=== PATIENT | male | born 1980 ===

== ENCOUNTER 2017-08-25 20:13 | Emergency (ER) | payer SELFPAY ==
[2017-08-25 20:16] VITALS: TEMP 97.8
--- NOTE | 2017-08-25 21:07 | C.PDOC ---
History Of Present Illness 37 year old male presents to the ER via EMS from home where he was intoxicated with his family. Patient reports he drank 12 beers and snorted a bag of cocaine. Patient walked in to the ER with EMS, complaint, mildly argumentative. Denies physical complaints. Time Seen by Provider: 08/25/17 21:06 Chief Complaint (Nursing): Substance Abuse History Per: Patient History/Exam Limitations: no limitations Onset/Duration Of Symptoms: Hrs Current Symptoms Are (Timing): Still Present Suicide/Self Injury Attempted (Context): None Modifying Factor(s): Alcohol Associated Symptoms: denies: Depression, Suicidal Thoughts, Suicidal Plan Involuntary Hold By: None Recent travel outside of the [place]: No Past Medical History Reviewed: Historical Data, Nursing Documentation, Vital Signs Vital Signs: Last Vital Signs Temp 97.8 F 08/25/17 20:15 Pulse 96 H 08/25/17 20:15 Resp 18 08/25/17 20:15 BP 130/84 08/25/17 20:15 Pulse Ox 96 08/25/17 21:12 Family History: States: Unknown Family Hx - Social History Hx Alcohol Use: Yes Hx Substance Use: Yes Review Of Systems Constitutional: Negative for: Fever, Chills Gastrointestinal: Negative for: Nausea, Vomiting, Diarrhea Physical Exam - Physical Exam Appears: Non-toxic, Other (ETOH on breath, No injuries) Skin: Normal Color, Warm, Dry Head: Atraumatic, Normacephalic Eye(s): bilateral: Other (Dilated pupils) Oral Mucosa: Moist Neck: Normal, Supple Chest: Symmetrical, No Tenderness Cardiovascular: Rhythm Regular Respiratory: Normal Breath Sounds, No Rales, No Rhonchi, No Wheezing Gastrointestinal/Abdominal: Soft, No Tenderness Neurological/Psych: Oriented x3, Normal Speech ED Course And Treatment O2 Sat by Pulse Oximetry: 96 Reevaluation Time: 21:50 Reassessment Condition: Improved (calm cooperative, sober ride arrived) Medical Decision Making Medical Decision Making: alcohol cocaine abuse, interested in detox, but no detox available tonight. May follow-up as opt. Disposition Doctor Will See Patient In The: Office Counseled Patient/Family Regarding: Studies Performed, Diagnosis - Disposition Disposition: HOME/ ROUTINE Disposition Time: 21:51 Condition: GOOD Forms: [facility] (Wolof) - Clinical Impression Clinical Impression: Alcohol abuse, Cocaine abuse - Scribe Statement The provider has reviewed the documentation as recorded by the Scribbjorn Stanford All medical record entries made by the Scribe were at my direction and personally dictated by me. I have reviewed the chart and agree that the record accurately reflects my personal performance of the history, physical exam, medical decision making, and the department course for this patient. I have also personally directed, reviewed, and agree with the discharge instructions and disposition.
[2017-08-25 22:00] VITALS: BP 137/90; PULSE 90; RESP 20; O2SAT 98
== END 2017-08-25 22:01 | disposition home or self-care (01) ==
LOC: C.ER 20:13
DX: F10.10 Alcohol abuse, uncomplicated (principal); F14.10 Cocaine abuse, uncomplicated; Y90.9 Presence of alcohol in blood, level not specified